=== PATIENT | female | born 1955 | race Hispanic/Latino ===

== ENCOUNTER 2016-10-14 07:55 | Day surgery (SDC) | payer BC ==
[2016-10-07 11:25] VITALS: BMI 31.1
[2016-10-14] MEDS ORDERED: Propofol 10 mg/ml Inj (20 ML) ONE (08:42)
[2016-10-14] MEDS ORDERED: Sodium Chloride 0.9% 1,000 ML IV SCH (09:30)
[2016-10-14 10:16] VITALS: BP 116/63; PULSE 57; RESP 16; TEMP 97.7; O2SAT 97
== END 2016-10-14 10:35 | disposition home or self-care (01) ==
LOC: ENDO 07:55
PROVIDERS: ATTEND Internal Medicine Gastroenterology
DX: K63.5 Polyp of colon (principal); K64.8 Other hemorrhoids; K63.89 Other specified diseases of intestine
CPT/HCPCS: 45380; 88305; J2704; J7040 ×2